=== PATIENT | male | born 1990 | race Caucasian/White ===

== ENCOUNTER 2017-02-08 00:47 | Emergency (ER) | payer MEDICAID ==
[~2017-02-08] VITALS: Ht 172.7 cm; Wt 86.2 kg
[2017-02-08] MEDS ORDERED: ONDANSETRON 4 MG TAB.RAPDIS ONE (02:52)
--- NOTE | 2017-02-08 02:58 | NUR ---
PT RECIEVED FROM HOME C/O HEADACHE 2/ AND NAUSEA WITH VOMIT X2 YESTERDAY. NO SOB NOTED WITH CLEAR LUNG SOUNDS BILATERALLY. A/O X4 AND ABLE TO MAKE NEEDS MET. WILL CONTINUE TO MONITOR FOR CHANGES
[2017-02-08] MEDS ORDERED: ONDANSETRON 4 MG TAB.RAPDIS SL ONE (03:00)
[2017-02-08] MEDS ORDERED: IBUPROFEN 400 MG TABLET PO ONE (03:00)
[2017-02-08] MEDS ORDERED: ACETAMINOPHEN 325 MG TABLET PO ONE (03:00)
[2017-02-08] MEDS ORDERED: IBUPROFEN 400 MG TABLET ONE (03:01)
[2017-02-08] MEDS ORDERED: ACETAMINOPHEN ES 500 MG TABLET ONE (03:01)
--- NOTE | 2017-02-08 03:02 | NUR ---
MEDCIATIONS GIVEN. TO D/C PATIENT
[2017-02-08 03:18] VITALS: BP 132/90
== END 2017-02-08 03:19 | disposition home or self-care (01) ==
LOC: ER 00:56
DX: J06.9 Acute upper respiratory infection, unspecified (principal)
CPT/HCPCS: 99283; A4606; Q0162; Z7610